=== PATIENT | male | born 1985 | race Caucasian/White ===

== ENCOUNTER 2023-08-18 14:34 | Emergency (ER) | payer OTHER ==
[2023-08-18 15:44] LABS: SARS-CoV-2 NAA Rapid Test Not Detected (NotDetected)
[2023-08-18] MEDS ORDERED: predniSONE 20 MG TAB ONE (15:53)
== END 2023-08-18 15:55 | disposition home or self-care (01) ==
LOC: CSHERS 14:34
DX: J01.90 Acute sinusitis, unspecified (principal); F17.210 Nicotine dependence, cigarettes, uncomplicated
CPT/HCPCS: 93005; J7512